=== PATIENT | female | born 1980 ===

== ENCOUNTER 2018-06-19 10:23 | Inpatient (IN) | payer OTHER ==
--- NOTE | 2018-06-18 19:06 | PDGENHP ---
History and Physical History and Physical: Assessment and Plan: 1. Endometriosis of pelvic peritoneum Ellie has known endometriosis. Her symptoms and exam findings are concerning for recurrent disease especially in the posterior cul-de-sac with possible nodule adherent to the rectum and vagina. She is scheduled for a robotic hysterectomy with excision of endometriosis tomorrow. 2. Dysmenorrhea 3. Dyschezia Subjective: Patient ID: Ellie Ferrell is a 37 y.o. female who presents to [facility] for endometriosis. HPI Ellie Ferrell presents for a preoperative visit. She is scheduled for a biotic hysterectomy with excision of endometriosis. She would like to conserve her left ovary if possible but has given me permission to remove it if indicated to reduce risk of recurrent pain. The risks, benefits, and alternatives were presented and informed consent was obtained. 40 minutes of this 40 minute appointment was spent counceling, reviewing the procedure in detail, and discussing the preoperative and postoperative instructions. Below is a copy of our prior visit note. Diagnosed 12 years ago with endometriosis. 1 miscarriage 2 pregnancies After 2nd in 2008, started having more pain and now the pain is daily. Current daily pain is somewhat manageable but nagging pain lower left quadrant. Much worse on menses. Currently taking depo and started in September. First period since starting was this last weekend and symptoms were horrible and went to ER for the pain. She is struggling with side effects of the depo right now including acne, weight gain, mood. Has tried sprintec in the past continuously, would have menses every 3-4 tried for about 1.5 years and stopped in September based on ACTIVITY COORDINATOR that recommended she change due to age and migraines. Menses started at age 13, not very heavy but long at 7-10 days in length, and painful. Not missing school due to pain. Linwood better on the OTC with exception of hormones. Generally bleeds about 4 days on menses. Wears pads and tampons and has to change them every few hours. Passes clots with menses. In 20's, ruptured cyst that ruptured R ovary. Was also having rectal bleeding with menses. Colonoscopy at that time was benign. Laparoscopy and cystectomy after ER visit, noted to have endometriosis, with vaginal lesion and rectal lesions. Had 2 c/s but no other laps for endometriosis. Linwood better with . Sharp pain LLQ daily now, feeling pain if pushing in the area, turns into a stabbing pain. Sometimes it also feels painful directly left of umbilicus. Uses CBD oil topically. Menstrual pain starts prior to bleeing (1-2 days prior), had a lot more abdominal pain and would radiate through entire abdomen including right side. Also had diarrhea with menses, along with constipation as well. Typically has blood in stool on menses. Was given pain meds in ER, did seem to help the pain. The pain lasted for about 1.5 weeks. Feels like sharp cramping in rectum and abdomen, like a contraction. Also feels dull and sharp aching in abdomen. If pushed on abdomen, it was sharp, stabbing pain. CT done and showed rectal and lower colon thickening, otherwise normal. Has cramping painful bowel movments on menses. Painful intercourse, happens occasionally but more with deep penetration. Also started with left sided back pain in 2016, this is daily, but does intensify with menses. Has been diagnosed with a vaginal lesion, biopsied in the past, but it appears to be persistent. Occasionally has chest pain and central back pain with deep inhalation, not necessarily coordinating with cycles, happens randomly. She recently saw a local obgyn who recommended a hysterectomy and noted to have adenomyosis on an ultrasound. After discusion of conservative and surgical options, ellie would like to move forward with surgical excision of endometriosis. She may consider whether she would like a hyst in the meantime with or without preservation of her remaining left ovary. We discussed the benefit of a colonoscopy, which she is currently scheduled for, in determining whether she has endo in the colon, especially based on the thickening noted on the CT scan. She will send her US and CT images to us for review. She would prefer surgery in [place] and having her pre op the day before to meet Dr. Richardson and have an exam. Should she have any quetsions or concerns, she may call back at anytime. PMH: migraines, anxiety Surg Hx: C/S X 2, abdominal lap, wisdom teeth extraction Meds: Venlafaxine Depo-provera imitrex prn Social: Rare alcohol No cigarettes, former, quit 10 years ago , 2 children ages 9,10 Work time broker in an office Lives in [place], [place] PastMedicalHistory Past Medical History: Diagnosis Date Gestational diabetes Mental disorder anxiety Migraines PastSurgicalHistory Past Surgical History: Procedure Laterality Date ABDOMINAL EXPLORATION SURGERY SECTION WISDOM TOOTH EXTRACTION CURRENT MEDICATIONS: Current Outpatient Medications Medication Sig fluticasone propionate (FLONASE NA) sumatriptan (IMITREX) 50 mg tablet Take 50 mg by mouth as needed. May repeat dose 1 time after 2 hours if needed. Do not exceed 200mg in 24 hours. venlafaxine (EFFEXOR-XR) 75 mg 24 hr capsule Take 75 mg by mouth daily ( with breakfast). No current facility-administered medications for this visit. ALLERGIES: Diphenhydramine hcl I have reviewed, verified and agree with the past medical, surgical, , family, social and ROS history as documented by the RN today. Objective: Vital Signs: Visit Vitals BP 132/80 Pulse 94 Temp 37.2 C (98.9 F) (Temporal) Resp 14 Ht 1.575 m (5' 2") Wt 72.6 kg (160 lb) SpO2 99% BMI 29.26 kg/m Physical Exam Gen: This is an alert, well developed woman in no distress. Neuro: She moves all extremities. Psych: She is appropriate, oriented, with normal affect. Neck: No thyroid enlargement, adenopathy, or tenderness. Lungs: Clear to ascultation, no wheezes or rales. Heart: Regular rate and rhythm without obvious murmurs. Abdomen: Soft, non-tender, without guarding, rebound, or masses. Extremities: No edema or cyanosis. Pelvic: Normal external genitalia. Non-gaping introitus, vagina without discharge, adequately estrogenized, no significant prolapse. Cervix without lesions or discharge. Uterus normal sized, mobile, non-tender. Adnexa non- tender without enlargement. There are 2 small blue spots in the posterior vaginal fornix at the cervix. She has a thickened area in the left aspect of the fornix on speculum exam. Bimanual exam reveals a very tender posterior cul- de-sac with thickening of the left uterosacral ligament and possible nodule which abuts or extends into the vagina. She has second-degree uterine prolapse. DATA: I have reviewed the pertinent medical records. TIME/COMMUNICATION: I personally spent a total of 60 minutes. Of that 40 minutes was counseling/ coordination of patient's care. See my note above for details. Sukhdeep Richardson MD Board Certified Female Pelvic Medicine and Reconstructive Surgery Director of Minimally Invasive Gynecologic Surgery, [facility] Surgeon in Minimally Invasive Gynecologic Surgery [facility] Surgeon in Robotic Surgery
[2018-06-19] MEDS ORDERED: GABAPENTIN 300 MG CAP PO ONE (10:35)
[2018-06-19] MEDS ORDERED: PHENAZOPYRIDINE HCL 200 MG TAB PO ONE (10:35)
[2018-06-19] MEDS ORDERED: ceFAZolin 2 GM/DEXTROSE 100 ML IV ONE (10:35)
[2018-06-19] MEDS ORDERED: ACETAMINOPHEN 500 MG TAB PO ONE (10:35)
[2018-06-19] MEDS ORDERED: BUPIVACAINE/EPI 0.5% 30 ML SDV ONE (10:45)
[2018-06-19] MEDS ORDERED: LR 1,000 ML IV ONE (10:47)
[2018-06-19] MEDS ORDERED: LIDOCAINE 1% 2 ML INJ ID PRN (10:47)
[2018-06-19] MEDS ORDERED: MIDAZOLAM 2 MG/2 ML VIAL IVP ONE (10:54)
--- NOTE | 2018-06-19 10:54 | PDANEPAE ---
ANE History of Present Illness DaVinci assist endometriosis excision ANE Past Medical History - Cardiovascular History Hx Hypertension: No Hx Arrhythmias: No Hx Chest Pain: No Hx Coronary Artery / Peripheral Vascular Disease: No Hx CHF / Valvular Disease: No Hx Palpitations: No - Pulmonary History Hx COPD: No Hx Asthma/Reactive Airway Disease: No Hx Recent Upper Respiratory Infection: No Hx Oxygen in Use at Home: No Hx Sleep Apnea: No Sleep Apnea Screening Result - Last Documented: Negative - Neurologic History Hx Cerebrovascular Accident: No Hx Seizures: No Hx Dementia: No - Endocrine History Hx Diabetes: No - Renal History Hx Renal Disorders: No - Liver History Hx Hepatic Disorders: No - Neurological & Psychiatric Hx Hx Neurological and Psychiatric Disorders: Yes Neurological / Psychiatric History Comment: anxiety - Cancer History Hx Cancer: No - Congenital Disorder History Hx Congenital Disorders: No - GI History Hx Gastrointestinal Disorders: Yes Gastrointestinal History Comment: IBS - Other Health History Other Health History: endometriosis - Chronic Pain History Chronic Pain: Yes (pelvic) - Surgical History Prior Surgeries: none in last 5 yrs. colonoscopy. x 2. right oophorectomy ANE Review of Systems Review of systems is: negative Review of Systems: - Exercise capacity METS (RN): 4 METS ANE Patient History - Allergies Allergies/Adverse Reactions: No Known Allergies Allergy (Verified 05/31/18 16:23) - Home Medications Home medications: home medication list seen and reviewed Home Medications: Cholecalciferol (Vitamin D3) 05/31/18 [Last Taken 06/05/18] Flonase Allergy Relief 05/31/18 [Last Taken 06/19/18 09:00] Ibuprofen 05/31/18 [Last Taken 06/11/18] Probiotic 05/31/18 [Last Taken 06/12/18] Sumatriptan 05/31/18 [Last Taken 05/22/18] Venlafaxine HCl 05/31/18 [Last Taken 06/18/18 22:00] - NPO status NPO Since - Liquids (Date): 06/19/18 NPO Since - Liquids (Time): 09:00 NPO Since - Solids (Date): 06/18/18 - Anes Hx Anes Hx: no prior problems - Smoking Hx Smoking Status: Former smoker - Family Anes Hx Family Anes Hx: none Family Hx Anesthesia Complications: none ANE Labs/Vital Signs - Vital Signs Vital Signs: reviewed preoperatively; see RN documention for details Height: 157.48 cm Weight: 70.76 kg ANE Physical Exam - Airway Neck exam: FROM Mallampati Score: Class 1 Mouth exam: normal dental/mouth exam - Pulmonary Pulmonary: no respiratory distress - Cardiovascular Cardiovascular: regular rate and rhythym - ASA Status ASA Status: II ANE Anesthesia Plan Anesthesia Plan: general endotracheal anesthesia Urgent/Emergent Case: Patricia corley completed preop but documented later for safe timely pt care
--- NOTE | 2018-06-19 11:55 | PDHPUP ---
History & Physical Update H&P update statement: This history and physical update is based on an assessment of the patient which was completed after admission or registration (within 24 hours), but prior to the surgery/procedure. H&P update: H&P reviewed & patient examined, no change in patient's condition since H&P completed
[2018-06-19] MEDS ORDERED: fentaNYL 250 MCG/5 ML INJ ONE (12:15)
[2018-06-19] MEDS ORDERED: LIDOCAINE 2% 100 MG/5 ML SYR ONE (12:15)
[2018-06-19] MEDS ORDERED: ONDANSETRON 4 MG/2 ML VIAL ONE (12:15)
[2018-06-19] MEDS ORDERED: ROCURONIUM 50 MG/5 ML VIAL ONE ×2 (12:15→13:47)
[2018-06-19] MEDS ORDERED: DEXAMETHASONE 4 MG/ML VIAL ONE (12:15)
[2018-06-19] MEDS ORDERED: PROPOFOL 200 MG/20 ML VIAL ONE (12:15)
[2018-06-19] MEDS ORDERED: ePHEDrine SULFATE 25 MG/5 ML SYR ONE (12:47)
[2018-06-19] MEDS ORDERED: NALOXONE HCL 0.4 MG/ML INJ IVP PRN (13:58)
[2018-06-19] MEDS ORDERED: PROMETHAZINE HCL 25 MG/ML INJ IVP PRN ×2 (13:58→15:49)
[2018-06-19] MEDS ORDERED: HYDROCODONE/APAP 5/325 TAB PO PRN (13:58)
[2018-06-19] MEDS ORDERED: LABETALOL HCL 5 MG/ML 20 ML MDV IVP PRN (13:58)
[2018-06-19] MEDS ORDERED: oxyCODONE IR 5 MG TAB PO PRN (13:58)
--- NOTE | 2018-06-19 13:59 | POSTANESTH ---
Post Anesthetic Evaluation Cardiovascular Status: Normal, Stable, Similar to Pre-Op Cond Respiratory Status: Normal, Stable, Similar to Pre-op Cond. Level of Consciousness/Mental Status: Can Participate in Eval, Mildly Sleepy, Arousable Pain Control: Adequate, Prn Tx Ordered Nausea/Vomiting Control: Adequate, Prn Tx Ordered Complications Possibly Related to Anesthesia: None Noted
[2018-06-19] MEDS ORDERED: KETOROLAC 30 MG/1 ML SDV ONE (15:26)
[2018-06-19] MEDS ORDERED: OXYCODONE/APAP 5/325 TAB PO PRN (15:49)
[2018-06-19] MEDS ORDERED: ONDANSETRON 4 MG/2 ML VIAL IVP PRN (15:50)
[2018-06-19] MEDS ORDERED: ONDANSETRON DISINTEGRATING 4 MG TAB PO PRN (15:50)
[2018-06-19] MEDS ORDERED: HYDROmorphONE/DILAUDID 2 MG/ML INJ ONE (15:55)
[2018-06-19] MEDS ORDERED: fentaNYL 100 MCG/2 ML INJ ONE ×2 (15:55→16:58)
[2018-06-19] MEDS: fentaNYL 100 MCG/2 ML INJ IVP PRN ×3 (15:57→16:58)
[2018-06-19] MEDS: HYDROmorphONE/DILAUDID 2 MG/ML INJ IVP PRN ×3 (15:59→16:56)
[2018-06-19] MEDS ORDERED: LR 1,000 ML IV SCH (16:00)
--- NOTE | 2018-06-19 16:01 | POSTOPPROG ---
Post Op Note Date of Operation: 06/19/18 Surgeon: Sukhdeep Richardson Hand Paint Mixer: Sandra Weems Anesthesiologist: Chris Anesthesia: GET(General Endotracheal) Pre-op Diagnosis: Endometriosis Post-op Diagnosis: Same Procedure: Robotic excision of endo, rectal, Hyst Inf/Abcess present in the surg proc area at time of surgery?: No EBL: 50-100 Complications: None
[2018-06-19] MEDS: HYDROmorphONE/DILAUDID 1 MG/ML INJ IVP PRN ×2 (18:08→20:46)
[2018-06-19] MEDS: SIMETHICONE 80 MG TAB CHEW PO SCH (18:09)
[2018-06-19] MEDS: cefOXitin SODIUM 1 GM in NS 50 ML IV SCH (18:49)
[2018-06-19] MEDS: DOCUSATE SODIUM 100 MG CAP PO SCH (20:47)
[2018-06-19] MEDS: KETOROLAC 30 MG/1 ML SDV IVP SCH (21:42)
--- NOTE | 2018-06-20 00:09 | GOP ---
[f rep st] OPERATIVE REPORT DATE OF OPERATION: 06/19/2018 SURGEON: Sukhdeep Richardson MD BUSINESS OBJECTS REPORT DEVELOPER: Sandra Guevara CFA, ANESTHESIA: General. PREOPERATIVE DIAGNOSIS: 1. Endometriosis. 2. Dysmenorrhea. 3. Pelvic pain. 4. Dyschezia. 5. Second-degree uterine prolapse. 6. Urinary frequency and urgency. POSTOPERATIVE DIAGNOSIS: 1. Endometriosis. 2. Dysmenorrhea. 3. Pelvic pain. 4. Dyschezia. 5. Second-degree uterine prolapse. 6. Urinary frequency and urgency. PROCEDURE PERFORMED: 1. Robotic-assisted total laparoscopic hysterectomy, bilateral salpingectomy, left oophorectomy. 2. Excision of endometriosis in the anterior and posterior cul-de-sacs, bilateral pelvic side pro. 3. Excision of rectal lesion. 4. Excision of sigmoid lesion. 5. Bilateral ureterolysis. 6. Uterosacral ligament colpopexy. 7. Cystoscopy. FINDINGS: SPECIMENS: 1. Uterus, bilateral tubes, left ovary. 2. Pelvic peritoneum with endometriosis. 1. Rectal mass. 3. ESTIMATED BLOOD LOSS: 30 mL. DESCRIPTION OF PROCEDURE: The patient was taken to the operating room. She was identified. General anesthesia was administered and found to be adequate. She was placed in the lithotomy position and prepared and draped in normal sterile fashion. A Schuster catheter was placed in her bladder. A VCare uterine manipulator was placed into the endometrial cavity and sutured to the cervix. An 8 mm infraumbilical incision was made with a scalpel. The Veress needle with CO2 gas flowing was advanced into the peritoneal cavity. The abdomen was then insufflated with carbon dioxide gas. The 8 mm trocar followed by the laparoscope were then inserted. The upper abdomen was unremarkable. The re was no evidence of endometriosis on either diaphragm, liver, stomach, gallbladder, or upper abdomi nal bowel. Two lateral ports were placed on either side under direct visualization. She then was pl aced in Trendelenburg position and the da Du robot docked on the left side. The instruments were then brought into the abdominal cavity under direct visualization. The patient had endometriosis in both the anterior and posterior cul-de-sacs and bilateral pelvic sidewalls. The rectum was densely a dherent to the lower uterine segment, cervix, and vagina with a large nodule. There was endometriosi s on the left adnexa. As a result, decision was made to perform a left salpingo-oophorectomy. She a lso required a hysterectomy given the nodule of endometriosis adhering the lower uterine segment and cervix to the rectum. The anterior cul-de-sac was excised. The left round ligament was divided. Th e anterior lip of the broad ligament was then incised toward the left bifurcation of the common iliac vessels. A window was created anterior to the left ureter to skeletonize the infundibulopelvic vess els. They were then cauterized and transected. A bilateral ureterolysis was required. The peritone um at the pelvic brims was incised. The ureters were gently dissected free and lateralized off the o verlying peritoneum and endometriosis as well as the adherence to both uterosacral ligaments. The di ssection was carried all the way down to the bladder. Once the ureters were lateralized, the pelvic sidewall peritoneum was completely excised to the rectum. A lesion on the sigmoid was excised. This extended approximately 25% through the muscularis. The rectum was adherent to the lower uterine seg ment in two places making an S shape. The proximal portion was . The more distal portion h ad the nodule which was found to extend all the way down to the mucosa. The nodule was dissected off the lower uterine segment, cervix, and vagina. Once this was accomplished then the right fallopian tube was along the mesosalpinx. The right round ligament was divided. The anterior lip of the broad ligament was incised. The bladder was gently dissected over the cervix and upper vagina. Uterine vasculature was then coagulated and divided bilaterally. A circumferential colpotomy incisi on was then made with the hot marcelle, and the uterus and specimens were removed through the vagina. Finally the large rectal nodule which was extended along the anterior surface of the rectum was then circumferentially excised. This required entry into the mucosa. Dr. Shruthi Buckner of general surgery came in to evaluate this. She felt it was safe to perform a suture closure. 2-0 Vicryl suture was u sed to perform interrupted sutures to close it longitudinally. A 2nd layer was then performed to imb ricate over the 1st. The sigmoid colon was then compressed against the sacral promontory. Dr. Buckner then inflated the rectum with air while it was under water. There was no evidence of air leak. The vaginal cuff was then closed with a running suture of 0 V-Loc 180. An uterosacral ligament colpopex y was performed by attaching the lateral aspects of the vaginal cuff to the ipsilateral uterosacral l igaments near the coccygeal-sacrospinous ligament complexes. A drain was left in the posterior cul-d e-sac. The robot was then undocked. The skin was closed with 4-0 Monocryl and surgical adhesive. Cystoscopy was then performed. Both ureters had vigorous jets of urine. There was no evidence of bl adder nor urethral injury seen. There were no sutures seen within the bladder. No obvious pathology was seen to account for the patient's urinary frequency and urgency other than her peritoneal endome triosis overlying the bladder. Anesthesia was then reversed and the patient taken to the PACU awake in stable condition. CONSULTATION: Shruthi Buckner MD, of general surgery. COMPLICATIONS: None. DISPOSITION: Patient stable to PACU. /[id number]/MODL
[2018-06-20] MEDS: cefOXitin SODIUM 1 GM in NS 50 ML IV SCH ×2 (00:15→06:34)
[2018-06-20] MEDS: SIMETHICONE 80 MG TAB CHEW PO SCH ×5 (00:40→21:52)
--- NOTE | 2018-06-20 02:19 | GOP ---
[f rep st] OPERATIVE REPORT DATE OF OPERATION: 06/19/2018 SURGEON: Shruthi Buckner MD ANESTHESIA: General. PREOPERATIVE DIAGNOSIS: Endometriosis with rectal involvement. POSTOPERATIVE DIAGNOSIS: Same PROCEDURE PERFORMED: Exam under anesthesia. FINDINGS: No leak SPECIMENS: None. ESTIMATED BLOOD LOSS: None. INDICATIONS: The patient is a 37-year-old woman who is undergoing surgery for endometriosis. During the surgery, Dr. Richardson noted that the endometriosis had involved the rectum. There was severe scarring over this area. As this was recognized, he called me to the operating room. DESCRIPTION OF PROCEDURE: The patient was already in the operating room and procedure was underway. Dr. Richardson was removing the severe scarring from the rectum. There were 2 enterotomies within the rectum and he continued to remove scarring. It involved the very superior aspect of the rectum. Dr. Richardson divided the bridge between the two enterotomies and performed a 2 layer closure of the rectum. I performed an exam under anesthesia and air insufflation test. No leaks were noted. I examined her rectum and there was no stenosis. I left the operating suite. /[id number]/MODL MTDD
[2018-06-20] MEDS: KETOROLAC 30 MG/1 ML SDV IVP SCH ×3 (04:09→16:11)
[2018-06-20] MEDS: HYDROmorphONE/DILAUDID 1 MG/ML INJ IVP PRN (04:09)
[2018-06-20 05:07] LABS: PLATELET COUNT 307 10^3/uL (150-400)
[2018-06-20] MEDS: DOCUSATE SODIUM 100 MG CAP PO SCH ×2 (08:57→21:52)
[2018-06-20] MEDS: HYDROCODONE/APAP 5/325 TAB PO PRN ×5 (09:27→22:29)
[2018-06-20] MEDS ORDERED: FLUTICASONE NASAL 120 SPRAYS/16 GM MDI EACHNARE PRN (10:04)
[2018-06-20] MEDS ORDERED: SUMAtriptan 50 MG TAB PO PRN (10:05)
--- NOTE | 2018-06-20 10:07 | SOAPPROG ---
SOAP Progress Note Assessment/Plan: Assessment: Doing well overall Plan: 06/20/18 10:05 D/C rangel Advance diet Keep MARCELINO until clear Not ready for discharge today Subjective: No complaints, pain controlled, has flatus Objective: Vital Signs Temp Pulse Resp BP Pulse Ox 37.1 C 83 19 105/67 98 06/20/18 08:00 06/20/18 08:00 06/20/18 08:00 06/20/18 08:00 06/20/18 08:00 Laboratory Results 06/20/18 04:20 06/19/18 06/20/18 06/21/18 05:59 05:59 05:59 Intake Total 2275 Output Total 1295 Balance 980 - Pending Discharge Pending Discharge Within 24 Hours: No Physical Exam - Physical Exam General Appearance: WD/WN, alert, no apparent distress Respiratory: lungs clear Cardiac/Chest: regular rate, rhythm Abdomen: normal bowel sounds, soft (Incisions clean, dry, and intact) ICD10 Worksheet Patient Problems: Problems Problem Status Onset Endometriosis of pelvic peritoneum Acute - ICD10 Problem Qualifiers (1) Endometriosis of pelvic peritoneum
[2018-06-20] MEDS: ESTRADIOL 1 MG TAB PO SCH (10:44)
[2018-06-20] MEDS: VENLAFAXINE XR 75 MG CAP PO SCH (10:44)
--- NOTE | 2018-06-20 12:39 | SOAPPROG ---
SOAP Progress Note Assessment/Plan: Assessment: Doing well overall Plan: 06/20/18 10:05 D/C rangel Advance diet Keep MARCELINO until clear Not ready for discharge today 06/20/18 12:38 Given then extensive amount of disease and the need to enter the rectum with primary closure with drain placement Ellie will require at least a two day hospitalization with in-patient status. Objective: Vital Signs Temp Pulse Resp BP Pulse Ox 37.1 C 83 19 105/67 98 06/20/18 08:00 06/20/18 08:00 06/20/18 08:00 06/20/18 08:00 06/20/18 08:00 Laboratory Results 06/20/18 04:20 06/19/18 06/20/18 06/21/18 05:59 05:59 05:59 Intake Total 2275 1000 Output Total 1295 1225 Balance 980 -225 ICD10 Worksheet Patient Problems: Problems Problem Status Onset Endometriosis of pelvic peritoneum Acute - ICD10 Problem Qualifiers (1) Endometriosis of pelvic peritoneum
--- NOTE | 2018-06-20 13:15 | PDMN ---
Medical Necessity Medical necessity: [facility] [place] [facility] [place], lap - INPT for extended stay: OP: Robotic assist Total Lap hyst, BS, L oophorectomy, excsions of endometriosis, excision of rectal lesion, , excision of sigmoid lesion, Bilat ureterolysis, Uterosacral ligament colpopexy- complex surgery req. entry into rectum with MARCELINO drain, req > 2 MN monitoring
[2018-06-20] MEDS: IBUPROFEN 600 MG TAB PO SCH (21:52)
[2018-06-21] MEDS: IBUPROFEN 600 MG TAB PO SCH ×2 (03:49→09:41)
[2018-06-21] MEDS: DOCUSATE SODIUM 100 MG CAP PO SCH (08:22)
[2018-06-21] MEDS: HYDROCODONE/APAP 5/325 TAB PO PRN (08:23)
[2018-06-21 09:11] VITALS: BP 104/64
[2018-06-21] MEDS: ESTRADIOL 1 MG TAB PO SCH (09:41)
[2018-06-21] MEDS: VENLAFAXINE XR 75 MG CAP PO SCH (09:41)
[2018-06-21] MEDS: SIMETHICONE 80 MG TAB CHEW PO SCH (09:41)
[2018-06-21 10:00] LABS: PLATELET COUNT 266 10^3/uL (150-400)
== END 2018-06-21 11:20 | disposition home or self-care (01) | DRG 743 ==
LOC: FSGY 10:23 → F3E 15:50 → FOB 17:20
PROVIDERS: ADMIT Obstetrics & Gynecology; ATTEND Obstetrics & Gynecology
PROC: 0UTC4ZZ Resection of Cervix, Percutaneous Endoscopic Approach (ICD-10-PCS; principal; 2018-06-19 11:30)
PROC: 0WBN4ZZ Excision of Female Perineum, Percutaneous Endoscopic Approach (ICD-10-PCS; principal; 2018-06-19 11:30)
PROC: 8E0W4CZ Robotic Assisted Procedure of Trunk Region, Percutaneous Endoscopic Approach (ICD-10-PCS; principal; 2018-06-19 11:30)
PROC: 0DBN4ZZ Excision of Sigmoid Colon, Percutaneous Endoscopic Approach (ICD-10-PCS; principal; 2018-06-19 11:30)
PROC: 0DBP4ZZ Excision of Rectum, Percutaneous Endoscopic Approach (ICD-10-PCS; principal; 2018-06-19 11:30)
PROC: 0UT74ZZ Resection of Bilateral Fallopian Tubes, Percutaneous Endoscopic Approach (ICD-10-PCS; principal; 2018-06-19 11:30)
PROC: 0UT14ZZ Resection of Left Ovary, Percutaneous Endoscopic Approach (ICD-10-PCS; principal; 2018-06-19 11:30)
PROC: 0UT94ZZ Resection of Uterus, Percutaneous Endoscopic Approach (ICD-10-PCS; principal; 2018-06-19 11:30)
DX: N80.3 Endometriosis of pelvic peritoneum (principal); N80.5 Endometriosis of intestine; N81.2 Incomplete uterovaginal prolapse; R35.0 Frequency of micturition; K58.9 Irritable bowel syndrome, unspecified; Z87.891 Personal history of nicotine dependence
CPT/HCPCS: J0690; J0694; J1100; J1170; J1885; J2001; J2250; J2405; J2704; J3010